=== PATIENT | female | born 1950 | race Caucasian/White ===

== ENCOUNTER → 2019-04-04 | Outpatient (CLI) | payer MEDICARE, OTHER ==
--- NOTE | 2019-04-04 13:55 | Diagnostic Imaging Report ---
PROCEDURE: MR angiography of the brain without the use of contrast. TECHNIQUE: 3D [id number] non contrast enhanced MR angiography of the head was performed. A source data was reformatted into rotating MIP projections. INDICATION: Right-sided mouth pain and trigeminal neuralgia. FINDINGS: There is flow in the distal internal carotid arteries as well as bilateral middle and anterior cerebral arteries. There is flow in the distal vertebral arteries, left vertebral dominant. There is dolichoectasia of the basilar artery. Posterior cerebral arteries appear to be patent. No definite aneurysm is identified. No definite intracranial stenosis is seen. IMPRESSION: Unremarkable MRA of the brain. Dictated by: Dictated on workstation # [id number]
--- NOTE | 2019-04-04 13:55 | Diagnostic Imaging Report ---
PROCEDURE: MR imaging of the brain without contrast. TECHNIQUE: Multiplanar, multisequence MR imaging of the brain was performed without contrast. INDICATION: Trigeminal neuralgia. COMPARISON: No prior studies are available for comparison. FINDINGS: The ventricles and sulci are appropriate for the patient's age. There are fairly significant periventricular and subcortical white matter signal abnormalities noted consistent with chronic microvascular ischemia. Moderate T2 signal within the jennifer is also noted. No diffusion restriction is seen to suggest acute ischemia. The normal expected flow voids within the carotid siphons are seen. There is dolichoectasia of the basilar artery. Basilar artery does course to the right and is located in the expected location of the right trigeminal nerve. Right trigeminal nerve is not well seen on this study. Left trigeminal nerve is unremarkable. No acute intra-axial or extra-axial hemorrhage is seen. Corpus callosum is unremarkable. The sella and parasellar structures are unremarkable. IMPRESSION: 1. Significant periventricular and subcortical white matter abnormalities noted suggestive of chronic microvascular ischemia. There is also significant increased signal within the jennifer, likely on the basis of chronic white matter changes. Prior osmotic demyelination cannot be entirely excluded. No acute intracranial process is detected. 2. Poorly visualized right trigeminal nerve. 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 Dictated by: Dictated on workstation # [id number]
== END ==
LOC: RAD 12:26
PROVIDERS: ATTEND Nurse Practitioner Family
DX: G50.0 Trigeminal neuralgia (principal)
CPT/HCPCS: 70544; 70551